=== PATIENT | female | born 1960 | race American Indian/Alaskan Native ===

== ENCOUNTER 2017-12-30 20:42 | Inpatient (IN) | payer OTHER ==
[2017-12-30] MEDS ORDERED: Albuterol-Ipratrop 3 mg / 0.5 (3 ml) UD IH STA ×3 (20:51→22:02)
--- NOTE | 2017-12-30 21:34 | ED PDOC ---
Arrival/HPI - General Chief Complaint: Shortness Of Breath Time Seen by Provider: 12/30/17 20:47 Historian: Patient - History of Present Illness Narrative History of Present Illness (Text): 12/30/17 20:50 Johanna Anaya is a 57 year old female, whose past medical history includes bronchial asthma, who presents to the emergency department complaining of wheezing and shortness of breath this evening. Patient states she is currently visiting and does not have any of her asthma medication with her. Patient denies any history of fever, chills, cough, chest pain, back pain, headache, dizziness, or any other complaints. Symptom Onset: Gradual Symptom Course: Unchanged Activities at Onset: Light Context: Home Past Medical History - Provider Review Nursing Documentation Reviewed: Yes - Reproductive Menopause: No - Pulmonary Hx Asthma: Yes - Psychiatric Hx Substance Use: No Family/Social History - Physician Review Nursing Documentation Reviewed: Yes Family/Social History: Unknown Family HX Smoking Status: Current Some Days Smoker Hx Alcohol Use: No Hx Substance Use: No Allergies/Home Meds Allergies/Adverse Reactions: Allergies No Known Allergies Allergy (Unverified 12/30/17 20:51) Review of Systems - Physician Review All systems were reviewed & negative as marked: Yes - Review of Systems Constitutional: Normal. absent: Fevers Eyes: Normal ENT: Normal Respiratory: SOB, Wheezing Cardiovascular: Normal. absent: Chest Pain Gastrointestinal: Normal. absent: Abdominal Pain, Diarrhea, Nausea, Vomiting Genitourinary Female: Normal. absent: Dysuria, Frequency, Hematuria, Urine Output Changes Musculoskeletal: Normal. absent: Back Pain, Neck Pain Skin: Normal. absent: Rash Neurological: Normal. absent: Headache, Dizziness Endocrine: Normal Hemo/Lymphatic: Normal Psychiatric: Normal Physical Exam Vital Signs Reviewed: Yes Vital Signs Temp Pulse Resp BP Pulse Ox 12/30/17 22:10 98.6 F 98 H 18 162/81 H 98 12/30/17 21:03 98 H 18 98 Temperature: Afebrile Blood Pressure: Normal Pulse: Regular Respiratory Rate: Normal Appearance: Positive for: Well-Appearing, Non-Toxic, Comfortable Pain Distress: None Mental Status: Positive for: Alert and Oriented X 3 - Systems Exam Head: Present: Atraumatic, Normocephalic Pupils: Present: PERRL Extroacular Muscles: Present: EOMI Conjunctiva: Present: Normal Ears: Present: Normal, NORMAL TM, Normal Canal Mouth: Present: Moist Mucous Membranes Pharnyx: Present: Normal. No: ERYTHEMA, EXUDATE, TONSILS ENLARGED, Peritonsilar Swelling, Uvular Deviation, Muffled/Hoarse Voice, Strider, Soft Palate/Uvular Edema Nose (External): Present: Atraumatic Nose (Internal): Present: Normal Inspection Neck: Present: Normal Range of Motion. No: Meningeal Signs, MIDLINE TENDERNESS , Paraspinal Tenderness Respiratory/Chest: Present: Wheezes (Expiratory wheeze bilaterally). No: Respiratory Distress, Accessory Muscle Use Cardiovascular: Present: Regular Rate and Rhythm, Normal S1, S2. No: Murmurs Abdomen: No: Tenderness, Distention, Peritoneal Signs Upper Extremity: Present: Normal Inspection. No: Cyanosis, Edema Lower Extremity: Present: Normal Inspection. No: Edema Neurological: Present: GCS=15, CN II-XII Intact, Speech Normal Skin: Present: Warm, Dry, Normal Color. No: Rashes Psychiatric: Present: Alert, Oriented x 3, Normal Insight, Normal Concentration Medical Decision Making ED Course and Treatment: 12/30/17 20:50 Impression: 57 year old female complaining of shortness of breath and wheezing. Differential Diagnosis included but are not limited to: asthma exacerbation Plan: -- Duoneb -- Solu-medrol -- Reassess and disposition Progress Notes: 12/30/17 22:59 EKG, Chest X-Ray, and labs ordered. Case discussed with medical appointment clerk production superintendent hydro , who is aware and agrees with plan. House doctor paged. 12/30/17 23:[address] Jordan, who is aware and agrees with plan. Accepts pt in to hospitalist service. 12/30/17 23:26 Chest X-Ray reviewed, shows no acute processes. 12/30/17 23:38 Reviewed EKG, NSR at 100 bpm. Non-specific T wave changes. - Lab Interpretations Lab Results: Lab Results 12/30/17 23:29: pCO2 38, pO2 73.0 L, HCO3 23.0, ABG pH 7.39, ABG Total CO2 24.2 , ABG O2 Saturation 97.2, ABG O2 Content 16.2, ABG Base Excess -1.7, ABG Hemoglobin 12.3, ABG Carboxyhemoglobin 2.9 H, POC ABG HHb (Measured) 2.7, ABG Methemoglobin 1.2, ABG O2 Capacity 16.7, Hgb O2 Saturation 93.2 L, FiO2 21.0 - RAD Interpretation Radiology Orders: 12/30/17 22:57 CHEST PORTABLE [RAD] Stat Binder Cutter Hand: ED Physician - Medication Orders Current Medication Orders: Discontinued Medications Albuterol/Ipratropium (Duoneb 3 Mg/0.5 Mg (3 Ml) Ud) 3 ml IH ONCE STA Stop: 12/30/17 20:52 Last Admin: 12/30/17 20:51 Dose: 3 ml Albuterol/Ipratropium (Duoneb 3 Mg/0.5 Mg (3 Ml) Ud) 3 ml IH ONCE STA Stop: 12/30/17 21:10 Last Admin: 12/30/17 21:09 Dose: 3 ml Albuterol/Ipratropium (Duoneb 3 Mg/0.5 Mg (3 Ml) Ud) 3 ml IH ONCE STA Stop: 12/30/17 22:03 Last Admin: 12/30/17 22:05 Dose: 3 ml Methylprednisolone (Solu-Medrol) 125 mg IVP ONCE ONE Stop: 12/30/17 21:10 Last Admin: 12/30/17 21:51 Dose: 125 mg IVP Administration Document 12/30/17 21:51 STEFFANIE (Rec: 12/30/17 21:51 STEFFANIE [id number]) Charges for Administration # of IVP Administrations 1 - Scribe Statement The provider has reviewed the documentation as recorded by the Scribe Negrita Yoo All medical record entries made by the Fadumoibsolomon were at my direction and personally dictated by me. I have reviewed the chart and agree that the record accurately reflects my personal performance of the history, physical exam, medical decision making, and the department course for this patient. I have also personally directed, reviewed, and agree with the discharge instructions and disposition. Disposition/Present on Arrival - Present on Arrival Any Indicators Present on Arrival: No History of DVT/PE: No History of Uncontrolled Diabetes: No Urinary Catheter: No History of Decub. Ulcer: No History Surgical Site Infection Following: None - Disposition Have Diagnosis and Disposition been Completed?: Yes Diagnosis: Asthma exacerbation Disposition: HOSPITALIZED Disposition Time: 23:40 Patient Plan: Observation Patient Problems: Current Active Problems Problem Status Onset Asthma exacerbation Acute Condition: STABLE Referrals: [facility], [Primary Care Provider] - Follow up with primary Forms: kooaba (Macedonian)
[2017-12-30 23:31] LABS: ARTERIAL BLOOD GAS HEMOGLOBIN 12.3 g/dL (11.7-17.4); ARTERIAL BLOOD GAS O2 CAPACITY 16.7 mL/dl (16-24); ARTERIAL BLOOD GAS O2 CONTENT 16.2 ML/dl (15-23); ARTERIAL BLOOD GAS PCO2 38 mm/Hg (35-45); ARTERIAL BLOOD GAS PH 7.39 (7.35-7.45)
[2017-12-30 23:32] LABS: ARTERIAL BLOOD GAS O2 SAT 97.2 % (95-98); ARTERIAL BLOOD GAS TCO2 24.2 mmol.L (22-28)
[2017-12-31 00:54] LABS: MEAN CELL VOLUME 86.5 fl (80.0-105.0); MEAN CORPUSCULAR HEMOGLOBIN 28.8 pg (25.0-35.0); MEAN CORPUSCULAR HGB CONC 33.3 g/dl (31.0-37.0); MEAN PLATELET VOLUME 11.9 fl (7.0-11.0); RBC 4.51 10^6/uL (3.5-6.1); RED CELL DISTRIBUTION WIDTH 14.2 % (11.5-14.5); WHITE BLOOD COUNT 10.9 10^3/ul (4.5-11.0)
[2017-12-31 01:08] LABS: ALB/GLOB RATIO 1.1 (1.1-1.8); ALT/SGPT 18 U/L (7-56); AST/SGOT 16 U/L (14-36); BLOOD UREA NITROGEN 18 mg/dL (7-21); GFR AFRICAN-AMERICAN > 60; GFR NON-AFRICAN AMERICAN > 60
[2017-12-31] MEDS ORDERED: Albuterol-Ipratrop 3 mg / 0.5 (3 ml) UD IH PRN (01:11)
[2017-12-31 01:20] LABS: B-TYPE NATRIURETIC PEPTIDE 181 pg/mL (0-450); TROPONIN I < 0.01 ng/mL
--- NOTE | 2017-12-31 03:09 | CP.PCM.HP ---
<Lavelle Renteria - Last Filed: 12/31/17 07:35> History of Present Illness - History of Present Illness History of Present Illness: CC: Shortness of breath HPI: 57 year old AA female with past medical history of Asthma, CHF, sarcoidosis , Lupus, and hypothyroidism who presents with progressive shortness of breath for the past five days. Patient indicates that five days prior to arrival she went to [place] with some of her friends where she was exposed to more smoke than she usually is exposed to. She indicated that even prior to this she felt her seasonal allergies acting up. She reports that she is visiting from [place] and that she forgot to bring her asthma medications. She states she is on chronic doses of prednisone 20mg, Advair and rescue pump inhalers. She states she was hospitalized last year for asthma exacerbation that lasted one week. Denies prior exacerbation requiring intubation. Patient indicates headache , lightheadedness and softer stool for the past few days. 12 point ROS benign other than mentioned in HPI. PMH: As above PSH: Thyroid bx, C section x1, uterine prolapse fixation SOCHX: Tobacco: Current smoker, 1 PP every 2 weeks, ETOH: Denies, ID: Denies ALL: NKDA MEDS: - Prenisone 20mg Daily - Advair Discus - Synthroid - Lasix 40mg Daily - Carvedilol 3.125mg BID - ASA 81 Daily - Simvastatin 20mg Daily [facility] [place] [facility] [place] Present on Admission - Present on Admission Any Indicators Present on Admission: No Review of Systems - Review of Systems All systems: reviewed and no additional remarkable complaints except (as mentioned in HPI) Past Patient History - Past Social History Smoking Status: Current Some Days Smoker Alcohol: None Drugs: Denies - PULMONARY Hx Asthma: Yes - PSYCHIATRIC Hx Substance Use: No Meds Allergies/Adverse Reactions: Allergies Allergy/AdvReac Type Severity Reaction Status Date / Time No Known Allergies Allergy Unverified 12/30/17 20:51 Physical Exam - Constitutional Appears: No Acute Distress - Head Exam Head Exam: ATRAUMATIC, NORMAL INSPECTION, NORMOCEPHALIC - Eye Exam Eye Exam: EOMI, PERRL - ENT Exam ENT Exam: Mucous Membranes Moist - Neck Exam Neck exam: Positive for: Full Rom. Negative for: Thyromegaly - Respiratory Exam Respiratory Exam: Decreased Breath Sounds, Wheezes (scattered). absent: Rales, Stridor - Cardiovascular Exam Cardiovascular Exam: REGULAR RHYTHM, +S1, +S2 - GI/Abdominal Exam GI & Abdominal Exam: Distended, Normal Bowel Sounds, Soft. absent: Tenderness Additional comments: obesity - Extremities Exam Extremities exam: Positive for: pedal edema (1+ b/l) - Neurological Exam Neurological exam: Alert, Normal Gait, Oriented x3 - Psychiatric Exam Psychiatric exam: Normal Affect, Normal Mood - Skin Skin Exam: Dry, Warm Results - Vital Signs Recent Vital Signs: Last Vital Signs Temp 98.6 F 12/30/17 22:10 Pulse 98 H 12/30/17 22:10 Resp 18 12/30/17 22:10 BP 162/81 H 12/30/17 22:10 Pulse Ox 98 12/30/17 22:10 - Labs Result Diagrams: 12/31/17 06:00 12/31/17 06:00 Labs: Laboratory Results - last 24 hr 12/31/17 12/31/17 00:40 00:40 WBC 10.9 RBC 4.51 Hgb 13.0 Hct 39.0 MCV 86.5 MCH 28.8 MCHC 33.3 RDW 14.2 Plt Count 373 MPV 11.9 H Sodium 146 Potassium 3.8 Chloride 110 H Carbon Dioxide 22 Anion Gap 18 BUN 18 Creatinine 0.8 Est GFR ( Amer) > 60 Est GFR (Non-Af Amer) > 60 Random Glucose 124 H Calcium 9.0 Total Bilirubin 0.3 AST 16 ALT 18 Alkaline Phosphatase 127 H Lactate Dehydrogenase 480 Total Creatine Kinase 110 Troponin I < 0.01 NT-Pro-B Natriuret Pep 181 Total Protein 7.6 Albumin 4.0 Globulin 3.6 Albumin/Globulin Ratio 1.1 Assessment & Plan - Assessment and Plan (Free Text) Assessment: 57 year old AA female with past medical history of Asthma, CHF, sarcoidosis, Lupus, and hypothyroidism who presents with progressive shortness of breath for the past five days. Patient to be admitted for asthma exacerbation. Plan: Asthma Exacerbation - Duonebs - IV solumedrol - TN with goal SaO2 >92% - Smoking cessation education - absent wbc, afebrile holding abx Hx of CHF - Continue home medications - Patient previous echo within past 6 months Hx of hypothyroid - Check TSH - Call patient pharmacy for dosage DVT ppx: SCD GI ppx: Protonix Case and plan discussed with attending - Date & Time Date: 12/31/17 Time: 03:12 <Becca Jordan - Last Filed: 12/31/17 08:08> Results - Vital Signs Recent Vital Signs: Last Vital Signs Temp 98.1 F 12/31/17 03:37 Pulse 92 H 12/31/17 03:37 Resp 18 12/31/17 03:37 BP 151/72 H 12/31/17 03:37 Pulse Ox 98 12/31/17 01:55 - Labs Result Diagrams: 12/31/17 06:00 12/31/17 06:00 Labs: Laboratory Results - last 24 hr 12/31/17 12/31/17 12/31/17 00:40 00:40 06:00 WBC 10.9 8.0 D RBC 4.51 4.40 Hgb 13.0 12.3 Hct 39.0 38.1 MCV 86.5 86.6 MCH 28.8 28.0 MCHC 33.3 32.3 RDW 14.2 14.2 Plt Count 373 379 MPV 11.9 H 12.1 H Gran % 86.7 H Lymph % (Auto) 10.9 L [place] % (Auto) 2.2 Eos % (Auto) 0.0 L Baso % (Auto) 0.2 Gran # 6.96 H Lymph # (Auto) 0.9 L [place] # (Auto) 0.2 Eos # (Auto) 0.0 Baso # (Auto) 0.02 PT INR Sodium 146 Potassium 3.8 Chloride 110 H Carbon Dioxide 22 Anion Gap 18 BUN 18 Creatinine 0.8 Est GFR ( Amer) > 60 Est GFR (Non-Af Amer) > 60 Random Glucose 124 H Calcium 9.0 Total Bilirubin 0.3 AST 16 ALT 18 Alkaline Phosphatase 127 H Lactate Dehydrogenase 480 Total Creatine Kinase 110 Troponin I < 0.01 NT-Pro-B Natriuret Pep 181 Total Protein 7.6 Albumin 4.0 Globulin 3.6 Albumin/Globulin Ratio 1.1 TSH 3rd Generation 12/31/17 12/31/17 12/31/17 06:00 06:00 06:00 WBC RBC Hgb Hct MCV MCH MCHC RDW Plt Count MPV Gran % Lymph % (Auto) [place] % (Auto) Eos % (Auto) Baso % (Auto) Gran # Lymph # (Auto) [place] # (Auto) Eos # (Auto) Baso # (Auto) PT 11.8 INR 1.03 Sodium 147 Potassium 4.1 Chloride 110 H Carbon Dioxide 24 Anion Gap 17 BUN 14 Creatinine 0.7 Est GFR ( Amer) > 60 Est GFR (Non-Af Amer) > 60 Random Glucose 147 H Calcium 8.9 Total Bilirubin 0.3 AST 17 ALT 19 Alkaline Phosphatase 106 Lactate Dehydrogenase Total Creatine Kinase Troponin I < 0.01 NT-Pro-B Natriuret Pep Total Protein 7.2 Albumin 3.8 Globulin 3.4 Albumin/Globulin Ratio 1.1 TSH 3rd Generation 0.46 Attending/Attestation - Attestation I have personally seen and examined this patient.: Yes I have fully participated in the care of the patient.: Yes I have reviewed all pertinent clinical information: Yes Notes (Text): 12/31/17 08:05 Addendum to physical exam:Pt is obese. Agree with rest of documentation and plan of treatment.
[2017-12-31 04:24] VITALS: BMI 56.3
[2017-12-31] MEDS: Pantoprazole 40 mg EC Tab PO SCH (05:47)
[2017-12-31] MEDS ORDERED: MethylPREDNISolone 40 mg Vial IVP SCH ×2 (06:00→22:00)
[2017-12-31 06:35] LABS: BASO # 0.02 K/mm3 (0.0-2.0); BASO % 0.2 % (0.0-3.0); GRAN # 6.96 (1.4-6.5); GRAN % 86.7 % (50.0-68.0); HEMOGLOBIN 12.3 g/dL (12.0-16.0); LYMPH # 0.9 (1.2-3.4); LYMPH % 10.9 % (22.0-35.0); MEAN CELL VOLUME 86.6 fl (80.0-105.0); MEAN CORPUSCULAR HGB CONC 32.3 g/dl (31.0-37.0); MEAN PLATELET VOLUME 12.1 fl (7.0-11.0); MONO # 0.2 (0.1-0.6); MONO % 2.2 % (1.0-6.0); RBC 4.4 10^6/uL (3.5-6.1); RED CELL DISTRIBUTION WIDTH 14.2 % (11.5-14.5)
[2017-12-31 06:52] LABS: TROPONIN I < 0.01 ng/mL
[2017-12-31 06:54] LABS: INR 1.03 (0.93-1.08); PROTHROMBIN TIME 11.8 SECONDS (9.4-12.5)
[2017-12-31 06:55] LABS: ALB/GLOB RATIO 1.1 (1.1-1.8); ALBUMIN 3.8 g/dL (3.0-4.8); ALT/SGPT 19 U/L (7-56); AST/SGOT 17 U/L (14-36); BLOOD UREA NITROGEN 14 mg/dL (7-21); CALCIUM 8.9 mg/dL (8.4-10.5); GFR AFRICAN-AMERICAN > 60; GFR NON-AFRICAN AMERICAN > 60
[2017-12-31] MEDS: Albuterol-Ipratrop 3 mg / 0.5 (3 ml) UD IH SCH ×3 (07:36→20:07)
--- NOTE | 2017-12-31 08:20 | RAD ---
HISTORY: Shortness of breath. COMPARISON: No prior. FINDINGS: LUNGS: No active pulmonary disease. PLEURA: No significant pleural effusion identified, no pneumothorax apparent. CARDIOVASCULAR: Normal. OSSEOUS STRUCTURES: No significant abnormalities. VISUALIZED UPPER ABDOMEN: Normal. OTHER FINDINGS: None. IMPRESSION: No active disease.
[2017-12-31] MEDS: guaiFENesin 100 mg/5 ml Syrup UD PO PRN (21:29)
--- NOTE | 2017-12-31 21:51 | CARD ---
APPROVED REPORT EKG Measurement Heart [id number] <Conclusion> Normal sinus rhythm with sinus arrhythmia Minimal voltage criteria for LVH, may be normal variant Borderline ECG
--- NOTE | 2017-12-31 21:56 | CARD ---
APPROVED REPORT EKG Measurement Heart [id number] <Conclusion> Normal sinus rhythm Nonspecific T wave abnormality Abnormal ECG
[2018-01-01] MEDS: Albuterol-Ipratrop 3 mg / 0.5 (3 ml) UD IH SCH ×5 (01:01→15:11)
[2018-01-01] MEDS: Pantoprazole 40 mg EC Tab PO SCH (05:29)
[2018-01-01] MEDS: guaiFENesin 100 mg/5 ml Syrup UD PO PRN (05:30)
[2018-01-01 06:41] LABS: BASO # 0.01 K/mm3 (0.0-2.0); BASO % 0.1 % (0.0-3.0); GRAN # 8.7 (1.4-6.5); GRAN % 80.3 % (50.0-68.0); HEMOGLOBIN 11.7 g/dL (12.0-16.0); LYMPH % 9.1 % (22.0-35.0); MEAN CELL VOLUME 87.3 fl (80.0-105.0); MEAN CORPUSCULAR HGB CONC 32.1 g/dl (31.0-37.0); MEAN PLATELET VOLUME 12.4 fl (7.0-11.0); MONO # 1.1 (0.1-0.6); MONO % 10.5 % (1.0-6.0); RBC 4.18 10^6/uL (3.5-6.1); RED CELL DISTRIBUTION WIDTH 14.5 % (11.5-14.5); WHITE BLOOD COUNT 10.8 10^3/ul (4.5-11.0)
[2018-01-01 07:18] LABS: ALB/GLOB RATIO 1.1 (1.1-1.8); ALBUMIN 3.6 g/dL (3.0-4.8); ALT/SGPT 13 U/L (7-56); AST/SGOT 24 U/L (14-36); BLOOD UREA NITROGEN 23 mg/dL (7-21); CALCIUM 9.3 mg/dL (8.4-10.5); GFR AFRICAN-AMERICAN > 60; GFR NON-AFRICAN AMERICAN > 60
[2018-01-01 07:58] VITALS: BP 152/63; PULSE 63; RESP 20; TEMP 97; O2SAT 96
[2018-01-01] MEDS: guaiFENesin-Codeine 100-10mg/5ml Syrup (5 ml) UD PO SCH ×2 (09:42→13:59)
[2018-01-01] MEDS ORDERED: Albuterol-Ipratrop 3 mg / 0.5 (3 ml) UD IH STA (10:11)
[2018-01-01] MEDS ORDERED: MethylPREDNISolone 40 mg Vial IVP SCH (14:00)
--- NOTE | 2018-01-01 14:11 | CP.PCM.DIS ---
Provider - Provider Date of Admission: 12/31/17 17:17 Attending physician: Sheldon Mitchell MD Consults: None Time Spent in preparation of Discharge (in minutes): 45 Hospital Course - Lab Results Lab Results: Most Recent Lab Values WBC 10.8 10^3/ul (4.5-11.0) D 01/01/18 05:30 RBC 4.18 10^6/uL (3.5-6.1) 01/01/18 05:30 Hgb 11.7 g/dL (12.0-16.0) L 01/01/18 05:30 Hct 36.5 % (36.0-48.0) 01/01/18 05:30 MCV 87.3 fl (80.0-105.0) 01/01/18 05:30 MCH 28.0 pg (25.0-35.0) 01/01/18 05:30 MCHC 32.1 g/dl (31.0-37.0) 01/01/18 05:30 RDW 14.5 % (11.5-14.5) 01/01/18 05:30 Plt Count 400 10^3/uL (120.0-450.0) 01/01/18 05:30 MPV 12.4 fl (7.0-11.0) H 01/01/18 05:30 Gran % 80.3 % (50.0-68.0) H 01/01/18 05:30 Lymph % (Auto) 9.1 % (22.0-35.0) L 01/01/18 05:30 [place] % (Auto) 10.5 % (1.0-6.0) H 01/01/18 05:30 Eos % (Auto) 0.0 % (1.5-5.0) L 01/01/18 05:30 Baso % (Auto) 0.1 % (0.0-3.0) 01/01/18 05:30 Gran # 8.70 (1.4-6.5) H 01/01/18 05:30 Lymph # (Auto) 1.0 (1.2-3.4) L 01/01/18 05:30 [place] # (Auto) 1.1 (0.1-0.6) H 01/01/18 05:30 Eos # (Auto) 0.0 (0.0-0.7) 01/01/18 05:30 Baso # (Auto) 0.01 K/mm3 (0.0-2.0) 01/01/18 05:30 PT 11.8 SECONDS (9.4-12.5) 12/31/17 06:00 INR 1.03 (0.93-1.08) 12/31/17 06:00 pCO2 38 mm/Hg (35-45) 12/30/17 23:29 pO2 73.0 mm/Hg (80-100) L 12/30/17 23:29 HCO3 23.0 mmol/L (21-28) 12/30/17 23:29 ABG pH 7.39 (7.35-7.45) 12/30/17 23: ABG Total CO2 24.2 mmol.L (22-28) 12/30/17 23:29 ABG O2 Saturation 97.2 % (95-98) 12/30/17 23:29 ABG O2 Content 16.2 ML/dl (15-23) 12/30/17 23:29 ABG Base Excess -1.7 mmol/L (-2.0-3.0) 12/30/17 23:29 ABG Hemoglobin 12.3 g/dL (11.7-17.4) 12/30/17 23:29 ABG Carboxyhemoglobin 2.9 % (0.5-1.5) H 12/30/17 23:29 POC ABG HHb (Measured) 2.7 % (0-5) 12/30/17 23:29 ABG Methemoglobin 1.2 % (0.0-3.0) 12/30/17 23:29 ABG O2 Capacity 16.7 mL/dl (16-24) 12/30/17 23:29 Hgb O2 Saturation 93.2 % (95.0-98.0) L 12/30/17 23:29 FiO2 21.0 % 12/30/17 23:29 Sodium 145 mmol/L (132-148) 01/01/18 05:45 Potassium 4.2 mmol/L (3.6-5.0) 01/01/18 05:45 Chloride 108 mmol/L (98-107) H 01/01/18 05:45 Carbon Dioxide 25 mmol/L (21-33) 01/01/18 05:45 Anion Gap 16 (10-20) 01/01/18 05:45 BUN 23 mg/dL (7-21) H 01/01/18 05:45 Creatinine 0.8 mg/dl (0.7-1.2) 01/01/18 05:45 Est GFR ( Amer) > 60 01/01/18 05:45 Est GFR (Non-Af Amer) > 60 01/01/18 05:45 Random Glucose 111 mg/dL (70-110) H 01/01/18 05:45 Calcium 9.3 mg/dL (8.4-10.5) 01/01/18 05:45 Total Bilirubin 0.4 mg/dL (0.2-1.3) 01/01/18 05:45 AST 24 U/L (14-36) 01/01/18 05:45 ALT 13 U/L (7-56) 01/01/18 05:45 Alkaline Phosphatase 131 U/L (38-126) H D 01/01/18 05:45 Lactate Dehydrogenase 480 U/L (333-699) 12/31/17 00:40 Total Creatine Kinase 110 U/L (35-230) 12/31/17 00:40 Troponin I < 0.01 ng/mL 12/31/17 06:00 NT-Pro-B Natriuret Pep 181 pg/mL (0-450) 12/31/17 00:40 Total Protein 7.1 g/dL (5.8-8.3) 01/01/18 05:45 Albumin 3.6 g/dL (3.0-4.8) 01/01/18 05:45 Globulin 3.4 gm/dL 01/01/18 05:45 Albumin/Globulin Ratio 1.1 (1.1-1.8) 01/01/18 05:45 Procalcitonin < 0.05 NG/ML (0.19-0.49) L 01/01/18 08:00 TSH 3rd Generation 0.46 mIU/mL (0.46-4.68) 12/31/17 06:00 - Hospital Course Hospital Course: On Admission: 57 year old AA female with past medical history of Asthma, CHF, sarcoidosis, Lupus, and hypothyroidism who presents with progressive shortness of breath for the past five days. Patient indicates that five days prior to arrival she went to [place] with some of her friends where she was exposed to more smoke than she usually is exposed to. She indicated that even prior to this she felt her seasonal allergies acting up. She reports that she is visiting from [place] and that she forgot to bring her asthma medications. She states she is on chronic doses of prednisone 20mg, Advair and rescue pump inhalers. She states she was hospitalized last year for asthma exacerbation that lasted one week. Denies prior exacerbation requiring intubation. Patient indicates headache , lightheadedness and softer stool for the past few days. 12 point ROS benign other than mentioned in HPI. Hospital Course: Patient was started on solumedrol 40 Q12, as well as duonebs q4 and robitussin with codeine. Patient wheezing stopped. She is breathing much better. CXR is much improved. Patient stable and discharged on prednisone taper with instructions to avoid triggers and follow up with primary care doctor. Discharge Exam - Head Exam Head Exam: ATRAUMATIC, NORMAL INSPECTION, NORMOCEPHALIC - Eye Exam Eye Exam: EOMI, Normal appearance, PERRL Pupil Exam: NORMAL ACCOMODATION, PERRL - Respiratory Exam Respiratory Exam: Clear to PA & Lateral, NORMAL BREATHING PATTERN, UNREMARKABLE. absent: Wheezes - Cardiovascular Exam Cardiovascular Exam: REGULAR RHYTHM, +S4 - GI/Abdominal Exam GI & Abdominal Exam: Normal Bowel Sounds, Soft. absent: Distended, Tenderness - Neurological Exam Neurological exam: Alert, CN II-XII Intact, Normal Gait, Oriented x3, Reflexes Normal - Psychiatric Exam Psychiatric exam: Normal Affect, Normal Mood - Skin Skin Exam: Dry, Intact, Normal Color, Warm Discharge Plan - Discharge Medications Prescriptions: Prednisone 10 mg PO DAILY 6 Days tab.ds.pk - Follow Up Plan Condition: STABLE Disposition: HOME/ ROUTINE Instructions: Asthma in Adults, Asthma (DC), Asthma (GEN) Additional Instructions: 1. Please continue taking home inhalers, Spiriva, Advair, Ventolin as directed 2. Take Prednisone taper as directed: 40mg by mouth daily for 2 days 20mg by mouth daily for the next 2 days 10mg by mouth daily for the next 2 days then stop 3. Please follow up with you regular doctor in 7-10 days 4. Please avoid triggers such as smoke, pollen and pet dander
--- NOTE | 2018-01-01 15:09 | RAD ---
HISTORY: Increased Wheezing COMPARISON: 12/30/2017 FINDINGS: LUNGS: No consolidation. PLEURA: No significant pleural effusion identified, no pneumothorax apparent. CARDIOVASCULAR: Heart size top normal. Pulmonary vasculature also likely probably top-normal. OSSEOUS STRUCTURES: Thoracic spondylosis. VISUALIZED UPPER ABDOMEN: Normal. OTHER FINDINGS: None. IMPRESSION: Pulmonary vasculature probably top-normal. No definite interval change perceived.
--- NOTE | 2018-01-01 21:36 | CARD ---
APPROVED REPORT EXAM: Two-dimensional and M-mode echocardiogram with Doppler and color Doppler. INDICATION Dyspnea edema 2D DIMENSIONS Left Atrium (2D)4.1 (1.6-4.0cm)IVSd1.0 (0.7-1.1cm) LVDd4.0 (3.9-5.9cm)PWd0.9 (0.7-1.1cm) LVDs2.6 (2.5-4.0cm)FS (%) 36.3 % LVEF (%)66.5 (>50%) M-Mode DIMENSIONS Aortic Root3.40 (2.2-3.7cm)Aortic Cusp Exc.2.10 (1.5-2.0cm) Aortic Valve AoV Peak Moucoolq526.0cm/Felice Peak GR.12mmHg Mitral Valve MV E Gxjqiyml06.4cm/sMV A Mvgomaxo46.3cm/sE/A ratio0.9 TDI Lateral E' Peak V8.77cm/sMedial E' Peak V8.77cm/sE/Lateral E'9.3 E/Medial E'9.3 Pulmonary Valve PV Peak Lkglhzph45.0cm/sPV Peak Grad.2mmHg Tricuspid Valve TR Peak Rjmbrxjb096bd/sRAP [id number] Peak Gr.29mmHg [id number] LEFT VENTRICLE The left ventricle is normal size. There is normal left ventricular wall thickness. The left ventricular function is normal. The left ventricular ejection fraction is within the normal range. There is normal LV segmental wall motion. Transmitral Doppler flow pattern is Grade I-abnormal relaxation pattern. RIGHT VENTRICLE The right ventricle is normal size. There is normal right ventricular wall thickness. The right ventricular systolic function is normal. ATRIA The left atrium size is normal. The right atrium size is normal. AORTIC VALVE The aortic valve is mildly sclerotic. No aortic regurgitation is present. There is no aortic valvular stenosis. MITRAL VALVE The mitral valve is normal in structure. There is no mitral valve regurgitation noted. There is no mitral valve stenosis. TRICUSPID VALVE There is mild tricuspid regurgitation. There is mild pulmonary hypertension. PULMONIC VALVE There is trace pulmonic valvular regurgitation. GREAT VESSELS The aortic root is normal in size. PERICARDIAL EFFUSION There is no pericardial effusion. <Conclusion> The left ventricle is normal size. There is normal left ventricular wall thickness. The left ventricular function is normal. The left ventricular ejection fraction is within the normal range. There is normal LV segmental wall motion. Transmitral Doppler flow pattern is Grade I-abnormal relaxation pattern. There is mild tricuspid regurgitation. There is mild pulmonary hypertension.
== END 2018-01-01 15:39 | disposition home or self-care (01) | DRG 96 ==
LOC: ED 20:42 → ERH 23:41 → 3RNO 12-31 01:45 → OBSVTOIN 12-31 17:17
PROVIDERS: ADMIT Internal Medicine; ATTEND Internal Medicine
DX: J45.901 Unspecified asthma with (acute) exacerbation (principal); D86.9 Sarcoidosis, unspecified; I50.9 Heart failure, unspecified; E03.9 Hypothyroidism, unspecified; F17.210 Nicotine dependence, cigarettes, uncomplicated; R40.2412 Glasgow coma scale score 13-15, at arrival to emergency department